=== PATIENT | female | born 1990 | race Caucasian/White ===

== ENCOUNTER → 2020-07-28 | Outpatient (CLI) | payer OTHER ==
[~2020-07-28] MED LIST: AMIT100T2 PO; LVT.05T PO; MECL25TA56 PO; PANT20TA2 PO
--- NOTE | 2020-07-28 18:04 | Diagnostic Imaging Report ---
PROCEDURE: US PELVIC (NON OB) TECHNIQUE: Multiple real-time grayscale images were obtained over the pelvis in various projections transabdominally. INDICATION: Irregular menses. FINDINGS: Uterus is anteverted measuring 7.3 x 3.5 x 4.9 cm. Endometrium is 8 mm in thickness. No myometrial mass is detected. Right ovary measures 3.5 x 2.1 x 2.3 cm and the left ovary measures 3.3 x 2.5 x 2.5 cm. Left ovary does contain an 18 mm cyst. There is blood flow to the ovaries. No adnexal mass or free fluid is seen. IMPRESSION: 18 mm left ovarian cyst. Study is otherwise unremarkable. Dictated by: Dictated on workstation # [id number]
== END ==
LOC: RAD 14:30
PROVIDERS: ATTEND Obstetrics & Gynecology Female Pelvic Medicine and Reconstructive Surgery
DX: N83.202 Unspecified ovarian cyst, left side (principal)
CPT/HCPCS: 76856

== ENCOUNTER 2022-04-08 09:52 | Emergency (ER) | payer OTHER ==
[~2022-04-08] VITALS: Ht 164 cm; Wt 72.0 kg
[2022-04-08 10:20] LABS: BILIRUBIN,URINE NEGATIVE (NEGATIVE); CLARITY,URINE CLOUDY; COLOR,URINE YELLOW; GLUCOSE, URINE (UA) NEGATIVE (NEGATIVE); KETONES,URINE NEGATIVE (NEGATIVE); LEUKOCYTE ESTERASE ,URINE NEGATIVE (NEGATIVE); NITRITE,URINE NEGATIVE (NEGATIVE); PH,URINE 7.5 (5-9); PROTEIN,URINE NEGATIVE (NEGATIVE)
--- NOTE | 2022-04-08 10:22 | ED GU-Female ---
General Chief Complaint: Abdominal/GI Problems Stated Complaint: LEFT FLANK PAIN Nursing Triage Note: pt states lt flank pain, 20 weeks with G-1 Source: patient History of Present Illness Date Seen by Provider: April 08, 2022 Time Seen by Provider: 10:09 Initial Comments PT ARRIVES VIA POV--HERE VISITING FROM [facility] PT IS 20 WEEKS --LMP 11/22/21, EDC 08/28/22; AB0 NO PROBLEMS WITH THIS PT BEGAN HAVING LEFT FLANK PAIN RADIATING TO LEFT MID AND LOWER ABDOMEN AROUND 0730 THIS AM HAS HAD SOME URINARY FREQUENCY AND PRESSURE, BUT THOUGHT WAS RELATED TO PRE GNANCY HAS HAD UTI'S IN THE PAST--NONE RECENTLY, HAD ONE KIDNEY STONE IN HIGH SCHOOL--NO TREATMENT REQUIRED. DOES NOT SEE A UROLOGIST NO FEVER NO NAUSEA/VOMITING/DIARRHEA NO VAGINAL BLEEDING OR DISCHARGE. Allergies and Home Medications Allergies Coded Allergies: duloxetine HCl (Verified Allergy, Mild, 05/11/13) meperidine HCl (Verified Allergy, Mild, 05/11/13) Patient Home Medication List Home Medication List Reviewed: Yes Amitriptyline Hcl (Amitriptyline Hcl) 100 Mg Tablet, 1 EACH PO DAILY, (Reported) Entered as Reported by: SUELLEN HUNTER on 05/11/131912 Hydrocodone Bit/Acetaminophen (HYDROcodone/APAP 7.5/325 TAB) 1 Ea Tablet, 1-2 EA PO Q4-6 PRN for PAIN Prescribed by: TITA TINAJERO on 04/08/22 130 Levothyroxine Sodium (Levothyroxine 50 Mcg Tab) 50 Mcg Tablet, 1 EACH PO DAILY, (Reported) Entered as Reported by: SUELLEN HUNTER on 05/11/131912 Meclizine Hcl (Antivert 25 Mg) 25 Mg Tablet, 1 EACH PO QID PRN Prescribed by: IVIS MENDIOLA on 05/11/132118 Ondansetron (Ondansetron Odt) 8 Mg Tab.rapdis, 8 MG PO Q4H PRN for NAUSEA/VOMITING Prescribed by: TITA TINAJERO on 04/08/22 130 Pantoprazole Sodium (Protonix) 20 Mg Tablet.dr, 20 MG PO DAILY, (Reported) Entered as Reported by: SUELLEN HUNTER on 05/11/131912 Review of Systems Review of Systems Constitutional: no symptoms reported Respiratory: no symptoms reported Cardiovascular: no symptoms reported Gastrointestinal: see HPI, abdominal pain, constipation; No diarrhea, No nausea, No vomiting Genitourinary: see HPI : Yes Expected Date of Delivery: Aug 22, 2022 Musculoskeletal: see HPI, back pain Skin: no symptoms reported; No rash Psychiatric/Neurological: No Symptoms Reported Endocrine: No Symptoms Reported Hematologic/Lymphatic: No Symptoms Reported Past Ujzvykh-Rolqah-Gdyqra Hx Patient Social History Tobacco Use?: No Smoking Status: Never a Smoker Use of E-Cig and/or Vaping Ramírez: Never a User Substance use?: No Alcohol Use?: No Immunizations Up To Date Tetanus Booster (TDap): More than 5yrs First/Initial COVID19 Vaccinat: 01/2021 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: [employer] Seasonal Allergies Seasonal Allergies: No Past Medical History Surgery/Hospitalization HX: galbladder Surgeries: Yes Gallbladder Respiratory: No Cardiac: No Neurological: No : Yes Expected Date of Delivery: Aug 22, 2022 Reproductive Disorders: No Sexually Transmitted Disease: No Genitourinary: Yes Kidney Infection, Bladder Infection, Kidney Stones Gastrointestinal: Yes Chronic Constipation Musculoskeletal: No Endocrine: Yes Hypothyroidsim HEENT: No Cancer: No Psychosocial: No Integumentary: No Blood Disorders: No Family Medical History No Pertinent Family Hx Physical Exam Vital Signs Vital Signs - First Documented 04/08/22 10:08 Temp 36.3 Pulse 79 Resp 22 B/P (MAP) 134/96 (109) Pulse Ox 100 O2 Delivery Room Air Capillary Refill : Less Than 3 Seconds Height, Weight, BMI Height: '" Weight: lbs. oz. kg; 26.00 BMI Method: General Appearance: WD/WN, no apparent distress (BUT LOOKS UNCOMFORTABLE, CRYING AT TIMES) Cardiovascular: regular rate, rhythm, no murmur Respiratory: normal breath sounds, no respiratory distress, no accessory muscle use Gastrointestinal: normal bowel sounds, soft, other (GRAVID UTERUS) Back: CVA tenderness (L) Extremities: normal inspection, no pedal edema, normal capillary refill Neurologic/Psychiatric: industry consultant II-XII nml as tested, no motor/sensory deficits, alert, oriented x 3 Skin: normal color, warm/dry; No rash Progress/Results/Core Measures Suspected Sepsis SIRS Temperature: Pulse: 79 Respiratory Rate: 22 Laboratory Tests 04/08/22 11:05: White Blood Count 15.5H Blood Pressure 134 /96 Mean: 109 Laboratory Tests 04/08/22 11:05: Creatinine 0.93, Platelet Count 263, Total Bilirubin 0.3 Results/Orders Lab Results My Orders Medications Given in ED Vital Signs/I&O Capillary Refill : Less Than 3 Seconds Blood Pressure Mean: 109 Progress Note : Progress Note FHR 145 GIVEN IV FLUIDS, FENTANYL, MORPHINE AND HYDROCODONE PAIN EASED AT DISMISSAL Diagnostic Imaging Comments ULTRASOUND REPORTS PER RADIOLOGIST REPORTS AT 1235 OB ULTRASOUND- FINDINGS: A single living intrauterine gestation is present in the transverse presentation. heart rate measures 136 bpm. Placenta is estimated at grade 1 and is anterior. No findings suggestive of previa. Amniotic fluid is subjectively normal in volume. IMPRESSION: Unremarkable appearance of the intrauterine gestation. RENAL ULTRASOUND-- FINDINGS: The right kidney demonstrates normal echogenicity and cortical thickness. The right kidney measures 10.6 x 6.0 x 6.5 cm. No hydronephrosis. The left kidney demonstrates normal echogenicity and cortical thickness. The left kidney measures 11.2 x 5.8 x 7.1 cm. There is moderate left hydronephrosis. The urinary bladder is normal. A left ureteral jet is not seen. Incidental finding of hyperechoic lesion within the liver suggesting a hemangioma. IMPRESSION: 1. Moderate left hydronephrosis without visualized left ureteral jet. This raises concern for obstruction. Reviewed: Reviewed by Me Departure Communication (Admissions) 1255--CALLED [facility] [place]. ( PT PREFERENCE) THEY WILL CALL BACK. 1314--SPOKE WITH DR. JIGNESH QUINTEROS, UROLOGIST, HE WILL SEE PT IN OFFICE IN FOLLOW UP. DISC COPY OF IMAGES SENT HOME WITH PT. Impression Primary Impression: LEFT URETERAL OBSTRUCTION--SUSPECTED STONE Additional Impression: 20 weeks gestation of Disposition: HOME, SELF-CARE Condition: Stable Departure-Patient Inst. Decision time for Depature: 13:17 Referrals: NO,LOCAL PHYSICIAN (PCP/Family) Primary Care Physician Patient Instructions: Kidney Stone, Adult ED, - The Fifth Month, Renal Colic (DC) Add. Discharge Instructions: LOTS OF CLEAR LIQUIDS STRAIN ALL URINE--RETURN ANY STONES TO UROLOGIST OFFICE. GO TO NEAREST ER IF SYMPTOMS WORSEN FOLLOW UP WITH DR. JIGNESH QUINTEROS, UROLOGIST, IN THE NEXT COUPLE OF DAYS FOR FURTHER CARE--[phone] All discharge instructions reviewed with patient and/or family. Voiced understanding. Scripts Hydrocodone Bit/Acetaminophen (HYDROcodone/APAP 7.5/325 TAB) 1 Ea Tablet 1-2 EA PO Q4-6 PRN for PAIN, #20 TAB Prov: TITA TINAJERO DO 04/08/22 Ondansetron (Ondansetron Odt) 8 Mg Tab.rapdis 8 MG PO Q4H PRN for NAUSEA/VOMITING, #10 TAB Prov: TITA TINAJERO DO 04/08/22 TITA TINAJERO DO April 08, 2022 10:22
[2022-04-08 10:56] LABS: AMORPHOUS SEDIMENT,UR LARGE AMOR PHOSPHATE /LPF; BACTERIA,URINE TRACE /HPF; SQUAMOUS EPITHELIAL CELL,UR 0-2 /HPF; WBC,URINE RARE /HPF
[2022-04-08] MEDS ORDERED: fentaNYL INJ 100 MCG/2 ML AMP IVP STA ×2 (10:59→12:19)
[2022-04-08] MEDS ORDERED: LACTATED RINGERS 1,000 ML IV ONE (11:00)
[2022-04-08 11:12] LABS: BASOPHILS # (AUTO) 0.1 10^3/uL (0.0-0.1); BASOPHILS % (AUTO) 1 % (0-10); EOSINOPHILS # (AUTO) 0.3 10^3/uL (0.0-0.3); EOSINOPHILS % (AUTO) 2 % (0-10); HEMATOCRIT 35 % (35-52); HEMOGLOBIN 11.9 g/dL (11.5-16.0); LYMPHOCYTES # (AUTO) 1.9 10^3/uL (1.0-4.0); LYMPHOCYTES % (AUTO) 12 % (12-44); MEAN CORPUSCULAR HEMOGLOBIN 33 pg (25-34); MEAN CORPUSCULAR HGB CONC 34 g/dL (32-36); MEAN CORPUSCULAR VOLUME 96 fL (80-99); MEAN PLATELET VOLUME 9.4 fL (9.0-12.2); MONOCYTES % (AUTO) 7 % (0-12); NEUTROPHILS # (AUTO) 12.1 10^3/uL (1.8-7.8); NEUTROPHILS % (AUTO) 78 % (42-75); PLATELET COUNT 263 10^3/uL (130-400); WHITE BLOOD COUNT 15.5 10^3/uL (4.3-11.0)
[2022-04-08 11:27] LABS: ALBUMIN 3.7 GM/DL (3.2-4.5)
[2022-04-08 11:29] LABS: CALCIUM 9.2 MG/DL (8.5-10.1)
[2022-04-08 11:30] LABS: TOTAL PROTEIN 6.9 GM/DL (6.4-8.2)
[2022-04-08 11:32] LABS: BILIRUBIN,TOTAL 0.3 MG/DL (0.1-1.0)
[2022-04-08 11:33] LABS: CREATININE SERUM 0.93 MG/DL (0.60-1.30)
[2022-04-08 11:48] LABS: BAND NEUTROPHILS 2 %; EOSINOPHILS % (MANUAL) 6 %; LYMPHOCYTES % (MANUAL) 16 %; MONOCYTES % (MANUAL) 3 %; NEUTROPHILS % (MANUAL) 73 %; RBC MORPH NORMAL
--- NOTE | 2022-04-08 12:29 | Diagnostic Imaging Report ---
EXAM: Limited OB ultrasound EXAM DATE: 04/08/2022 COMPARISON: None. HISTORY: Pelvic pain. TECHNIQUE: Multiple sonographic images of the pelvis were obtained. FINDINGS: A single living intrauterine gestation is present in the transverse presentation. heart rate measures 136 bpm. Placenta is estimated at grade 1 and is anterior. No findings suggestive of previa. Amniotic fluid is subjectively normal in volume. IMPRESSION: Unremarkable appearance of the intrauterine gestation. Dictated by: Dictated on workstation # [id number]
--- NOTE | 2022-04-08 12:33 | Diagnostic Imaging Report ---
EXAMINATION: US Retroperitoneal Complete. TECHNIQUE: Multiple real-time grayscale images were obtained over the kidneys in various projections bilaterally. HISTORY: Left flank pain COMPARISON: None available. FINDINGS: The right kidney demonstrates normal echogenicity and cortical thickness. The right kidney measures 10.6 x 6.0 x 6.5 cm. No hydronephrosis. The left kidney demonstrates normal echogenicity and cortical thickness. The left kidney measures 11.2 x 5.8 x 7.1 cm. There is moderate left hydronephrosis. The urinary bladder is normal. A left ureteral jet is not seen. Incidental finding of hyperechoic lesion within the liver suggesting a hemangioma. IMPRESSION: 1. Moderate left hydronephrosis without visualized left ureteral jet. This raises concern for obstruction. Dictated by: Dictated on workstation # [id number]
[2022-04-08] MEDS ORDERED: HYDR-34 PO (13:03)
[2022-04-08] MEDS ORDERED: ONDA8TAB13 PO (13:03)
[2022-04-08] MEDS ORDERED: morphine INJ 10 MG/ML 1ML (SYR OR VIAL) IVP ONE (13:30)
[2022-04-08] MEDS ORDERED: morphine INJ 10 MG/ML 1ML (SYR OR VIAL) IVP STA (14:06)
[2022-04-08 14:20] VITALS: BP 119/76
== END 2022-04-08 14:20 | disposition home or self-care (01) ==
LOC: EDUNIT# 09:52 → ER 09:55
DX: O26.832 Pregnancy related renal disease, second trimester (principal); N13.5 Crossing vessel and stricture of ureter without hydronephrosis; Z87.440 Personal history of urinary (tract) infections; Z87.442 Personal history of urinary calculi; Z3A.20 20 weeks gestation of pregnancy
CPT/HCPCS: 36415; 76770; 76815; 80053; 81000; 85007; 85027